=== PATIENT | female | born 1940 | race Caucasian/White ===

== ENCOUNTER 2021-04-20 12:16 | Outpatient (RCR) | payer MEDICARE, SELFPAY | END 2021-08-05 10:18 | disposition home or self-care (01) | LOC: HO.WCC 12:16 | PROVIDERS: PCP Family Medicine; Referring Provider Nurse Practitioner Family; Visit Provider Physician Assistant | DX: I87.333 Chronic venous hypertension (idiopathic) with ulcer and inflammation of bilateral lower extremity (principal); L97.822 Non-pressure chronic ulcer of other part of left lower leg with fat layer exposed; L97.812 Non-pressure chronic ulcer of other part of right lower leg with fat layer exposed; I89.0 Lymphedema, not elsewhere classified; I48.91 Unspecified atrial fibrillation; I11.0 Hypertensive heart disease with heart failure; I50.30 Unspecified diastolic (congestive) heart failure; Z87.891 Personal history of nicotine dependence; Z86.73 Personal history of transient ischemic attack (TIA), and cerebral infarction without residual deficits | CPT/HCPCS: 11042; 11045; 97597; 97598; 99212; 99215 ==

== ENCOUNTER 2021-09-09 12:51 | Outpatient (RCR) | payer MEDICARE, SELFPAY | END 2021-11-24 16:00 | disposition home or self-care (01) | LOC: HO.WCC 12:51 | PROVIDERS: PCP Family Medicine; Visit Provider Surgery | DX: I87.333 Chronic venous hypertension (idiopathic) with ulcer and inflammation of bilateral lower extremity (principal); L97.812 Non-pressure chronic ulcer of other part of right lower leg with fat layer exposed; L97.519 Non-pressure chronic ulcer of other part of right foot with unspecified severity; S81.812D Laceration without foreign body, left lower leg, subsequent encounter; I87.2 Venous insufficiency (chronic) (peripheral); I89.0 Lymphedema, not elsewhere classified | CPT/HCPCS: 11042; 97597; 99213 ==